=== PATIENT | male | born 1955 | race Caucasian/White ===

== ENCOUNTER → 2018-02-18 | Outpatient (CLI) | payer OTHER ==
--- NOTE | 2018-02-19 08:48 | PCVCIMAG ---
APPROVED REPORT Study performed: 02/18/2018 15:13:01 Exam: Stress Echocardiogram Indication: Abnormal EKG, Pre OP clearance Patient Location: Echo lab Stress Nurse: Mariangel Heart RN Room #: 2 Status: routine Ht: 5 ft 10 in HR: 81 bpm BP: 152/80 mmHg Rhythm: NSR Medical History Medical History: HTN, Hyperlipidemia Cardiac Risk Factors: abn EKG, HTN, Hyperlipidemia Previous Cardiac Procedures: none Pretest Chest Pain Characteristics: No chest pain Exercise History: Physically active Procedure The patient underwent an Exercise Stress Test using the Gail Protocol. Blood pressure, heart rate, and EKG were monitored. An Echocardiogram was performed by ecg technician in four stages in quad fashion. At peak stress, four selected images were obtained and placed side by side with resting images for comparison. Stress Test Details Stress Test: Exercise stress testing was performed using a Gail protocol. HR Resting HR: 81 bpmMax Heart Rate (APMHR): 160 bpm Max HR Achieved: 173 bpmTarget HR (85% APMHR): 136 bpm % of APMHR: 108 Recovery HR: 111 bpm HR response to stress: Normal HR response to stress BP Resting BP: 152/80 mmHg Max BP: 200/90 mmHg Recovery BP: 160/90 mmHg ECG Resting ECG: Sinus Rhythm, NSSTT changes Stress ECG: Sinus Rhythm ST Change: Non-ischemic Arrhythmia: Rare PAC,PVC Recovery ECG: Sinus Rhythm Recovery ST Change: Non-ischemic Recovery Arrhythmia: None Clinical Reason for Termination: Maximal effort Stress Symptoms: none Exercise duration: 15 min 58 sec Highest Stage Achieved: Stage 6: 5.5 mph at 20% grade. Exercise capacity: 20.1 METs Overall Exercise Capacity for Age: Excellent Scale: Active Angina Score: None No complications. Stress ECG Conclusion The patient exercised according to the GAIL protocol for 15:58 mins; achieving a work level of 20.1 METS. The resting heart rate of 81 bpm gloria to a maximum heart rate of 173 bpm. This value represent 108% of the maximal, age-predicted heart rate. The resting blood pressure of 152/80 mmHg, gloria to a maximum blood pressure of 200/90 mmHg. The exercise test was stopped due to fatigue. Pre-Stress Echo The resting Echocardiogram showed normal left ventricular contractility with an estimated Ejection Fraction of about 55-60%. Normal wall motion in all segments on baseline images. Post-Stress Echo The stress Echocardiogram showed normal left ventricular contractility with an estimated Ejection Fraction of about 65-70%. Normal augmentation of wall motion in all segments on post stress images. Clinical No clinical or ECG evidence for ischemia. Conclusion Clinical Response: Non-ischemic Exercise Capacity: Superior Stress ECG Response: Non-ischemic Stress Echo Images: Non-ischemic No clinical, EKG or echocardiographic evidence for ischemia. No echocardiographic evidence for exercise induced ischemia. Normal stress echocardiogram with maximal exercise stress. 1. Low Risk Study <Conclusion> No clinical, EKG or echocardiographic evidence for ischemia. No echocardiographic evidence for exercise induced ischemia. Normal stress echocardiogram with maximal exercise stress. 1. Low Risk Study
== END | disposition home or self-care (01) ==
LOC: PCVCIMAG 14:34
PROVIDERS: ATTEND Internal Medicine
DX: I10 Essential (primary) hypertension (principal); E78.5 Hyperlipidemia, unspecified
CPT/HCPCS: 93325; 93351